=== PATIENT | male | born 1945 | race Caucasian/White ===

== ENCOUNTER 2017-11-04 12:55 | Outpatient (CLI) | payer MEDICARE, OTHER ==
--- NOTE | 2017-11-04 15:28 | PET ---
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 Stat us post esophageal gastrectomy. Last chemotherapy was in September 2017. Exam requested for restaging. TECHNIQUE: PET scanning with CT attenuation correction was performed from the base of the brain through the prox imal thighs following the intravenous administration of 12.8 mCi F18-FDG in the right hand. Imaging w as performed after an uptake interval of 40 minutes. COMPARISON: PET CT dated 12/29/16. FINDINGS: There is a focal area of increased FDG localization in the region of the junction with a SUV of 7. 3. No fredy hypermetabolism is seen in the neck, chest, abdomen, or pelvis. The previously noted hype rmetabolic lymph nodes in the gastrohepatic ligament are no longer seen. No hypermetabolic pulmonary nodules, liver, adrenal, or skeletal lesions are identified. There is physiologic activity in the GI and tracts, and visualized portions of the brain. Increased uptake in the opacified right maxillary sinus is again seen with a SUV of 11.2 (previously 23.2). This is likely due to paranasal sinus disease. The CT scan used for attenuation correction demonstrates no evidence of pleural effusions or ascites. Postop changes of metallic hardware in the lower lumbar spine and sacrum are again seen. IMPRESSION: Hypermetabolic focus in the region of the GE junction is suspicious for recurrence of malignancy. No evidence of distant metastatic disease. POS: [facility]
== END 2017-11-04 12:56 | disposition home or self-care (01) ==
LOC: PET 12:55
PROVIDERS: ATTEND Internal Medicine Medical Oncology
DX: C15.9 Malignant neoplasm of esophagus, unspecified (principal)
CPT/HCPCS: 78815; A9552

== ENCOUNTER 2018-02-12 08:50 | Outpatient (CLI) | payer MEDICARE, OTHER ==
--- NOTE | 2018-02-12 13:21 | PET ---
PET SCAN WITH CT ATTENUATION CORRECTION: HISTORY: Esophageal cancer. COMPARISON: 11/04/17. TECHNIQUE: PET scan with CT attenuation correction was performed from the base of the brain to the proximal thig hs following the intravenous administration of 11.1 mCi of [id number]. FINDINGS: HEAD AND NECK: Persistent FDG avidity involving the right maxillary sinus, extending into the right nasal cavity. C urrently, the maximum SUV is 8.9 (previously 9.8). Findings may represent some resolution of inflamm atory change. However, uptake is also reported and noted in December of 2016. Longstanding FDG avidity may be on the basis of chronic sinus disease. However, direct visualization to exclude a neoplasm i s strongly recommended. Additional FDG avidity is noted in the oral cavity with a maximum SUV of 4.2 . CHEST: There is increased FDG avidity involving the mid esophagus with the maximum SUV between 2.8 and 2.9. Additional FDG localization is not appreciated. Interval removal of a stent in the thoracic esophag us. There are linear opacities in the right lower lobe which do not have FDG avidity. These opacities we re not present on the examination from October 2017 and may represent areas of scar or atelectasis. ABDOMEN AND PELVIS: There is increased FDG avidity in the anterior epigastric region which may be changes due to a previo usly removed PEG tube. There is deformity in the overlying dermis. FDG avidity in this region is 3. 4. No additional areas of increased FED avidity are appreciated. Previously noted FDG avidity invol ving the gastroesophageal ligament is not appreciated currently. OSSEOUS SRUCTURES: No abnormal FDG localization. IMPRESSION: 1. Persistent fluorodeoxyglucose avidity in the right maxillary region and right nasal cavity. Dire ct visualization is recommended. 2. Increased fluorodeoxyglucose avidity in the midthoracic esophagus. Interval removal of stent. F luorodeoxyglucose avidity does raise the possibility of recurrent esophageal cancer. 3. No evidence of fluorodeoxyglucose avidity in the gastrohepatic ligament. There is increased fluo rodeoxyglucose avidity in the epigastric region with deformity of the overlying dermis. Findings may be due to previous PEG tube. Correlate clinically for possible infection. POS: [facility]
== END 2018-02-12 08:51 | disposition home or self-care (01) ==
LOC: PET 08:50
PROVIDERS: ATTEND Internal Medicine Medical Oncology
DX: C15.9 Malignant neoplasm of esophagus, unspecified (principal)
CPT/HCPCS: 78815; A9552

== ENCOUNTER → 2018-03-10 | Day surgery (SDC) | payer MEDICARE, OTHER ==
[~2018-03-10] MED LIST: PROPOFOL 200 MG/20 ML VIAL ONE
--- NOTE | 2018-03-10 15:29 | OP ---
DATE OF PROCEDURE: 03/10/2018 PROCEDURE: Esophagogastroduodenoscopy with biopsy and balloon dilation of the esophagus and a biopsy of the stomach. OPERATIVE NOTE: Informed consent was obtained from the patient. He was sedated with total intraveno us anesthesia. The bite block was placed and the endoscope was advanced easily to the second portion of the duodenum and retroflexion was performed in the stomach. The esophagus had a tight stricture at 30 cm through which the diagnostic endoscope could not be passed. This was dilated to 15 mm start ing at 12 mm to 13.5 and then 15 mm with a balloon. Appropriate tear was achieved at the dilation si te. There was ulceration and erosive esophagitis from 25-30 cm. The anastomosis was at 30 cm. The stricture was between 30 and 33 cm, which was dilated. There was an area of gastric mucosa within a focal erosion on the base of a fold inside the surgical hiatal hernia. This was biopsied. Biopsies were also obtained at 25, 27, 30, and 32 cm. No focal mass was seen to indicate obvious recurrence o f esophageal cancer; however, the area was inflamed and ulcerated. The gastric mucosa was, otherwise , unremarkable including retroflexed views. The pylorus and first and second portions of the duodenu m were normal. IMPRESSION: 1. Erosive esophagitis from 25-30 cm, biopsied at 25 and 27 cm. 2. Anastomosis at 30 cm with stricture from 30-33 cm. This was dilated to 15 mm with a balloon dila tor. The scope could pass easily through the stricture after dilation, but could not prior to the di lation. Biopsies were obtained at 30 and 32 cm. 3. Gastric fold with a focal erosion at 39 cm just inside the surgical hiatal hernia. This is biops ied. 4. Otherwise, normal gastric and duodenal mucosa. RECOMMENDATIONS: 1. Await histopathology. 2. Proton pump inhibitor twice daily. 3. Follow up in GI clinic. 4. Repeat esophageal dilation as needed.
== END ==
LOC: SDC 12:47
PROVIDERS: ATTEND Internal Medicine Gastroenterology
PROC: 0DB58ZX Excision of Esophagus, Via Natural or Artificial Opening Endoscopic, Diagnostic (ICD-10-PCS; principal; 2018-03-10)
PROC: 0DB68ZX Excision of Stomach, Via Natural or Artificial Opening Endoscopic, Diagnostic (ICD-10-PCS; 2018-03-10)
PROC: 0D758ZZ Dilation of Esophagus, Via Natural or Artificial Opening Endoscopic (ICD-10-PCS; 2018-03-10)
DX: K22.2 Esophageal obstruction (principal); K22.10 Ulcer of esophagus without bleeding; K44.9 Diaphragmatic hernia without obstruction or gangrene; F17.210 Nicotine dependence, cigarettes, uncomplicated; Z88.0 Allergy status to penicillin; Z88.5 Allergy status to narcotic agent; Z79.82 Long term (current) use of aspirin; Z79.899 Other long term (current) drug therapy
CPT/HCPCS: 88305; 88312; 88313; J2704

== ENCOUNTER 2018-03-24 15:54 | Observation (INO) | payer MEDICARE, OTHER ==
[~2018-03-24 15:54] MED LIST changes: +Lidocaine 1% PF 5 ML VIAL ONE; +Succinylcholine Chloride 20 MG/ML 10 ml SYRINGE FS ONE; +ePHEDrine/0.9% NaCl/PF SYRINGE 50 mg/10 ml ONE
[2018-03-24] MEDS ORDERED: Morphine 4 MG/ML VIAL ONE (16:55)
[2018-03-24 17:01] LABS: #Eosinphils 0.4 thou/uL (0.0-0.7); #Lymphocytes 0.8 thou/uL (1.20-3.40); #Monocytes 0.5 thou/uL (0.11-0.59); #Neutrophils 2.1 thou/uL (1.40-6.50); %Basophils 0.6 % (0.0-1.0); %Eosinophils 10.4 % (0.0-10.0); %Lymphocytes 20.2 % (21.0-51.0); %Monocytes 12.7 % (0.0-10.0); %Neutrophils 56.1 % (42.0-75.0); Hemoglobin 10.5 g/dL (14.0-18.0); Mean Corpuscular HGB CONC 33.8 g/dL (32.0-36.0); Mean Corpuscular Hemoglobin 33.5 pg (27.0-31.0); Mean Corpuscular Volume 99.1 fL (78.0-98.0); Platelet Count 100 thou/uL (130-400); RBC Distribution Width 17.4 % (11.5-14.5); Red Blood Cell (RBC) Count 3.13 mill/uL (4.70-6.10); White Blood Cell (WBC) Count 3.8 thou/uL (4.8-10.8)
[2018-03-24 17:07] VITALS: BMI 17.2
[2018-03-24 17:09] LABS: PTT 33.7 SEC (22.9-36.1); Prothrombin Time 13.4 SEC (12.0-14.7)
[2018-03-24] MEDS ORDERED: Midazolam HCl 2 mg/2 ml Vial ONE (17:18)
[2018-03-24] MEDS ORDERED: Succinylcholine Chloride 20 MG/ML 10 ml SYRINGE FS ONE (17:18)
[2018-03-24 17:19] LABS: ALT (SGPT) 9 U/L (8-55); AST (SGOT) 19 U/L (5-34); Albumin 3.5 g/dL (3.4-4.8); Alkaline Phosphatase 76 U/L (40-150); Anion Gap 13 mmol/L (10-20); BUN (Urea Nitrogen) 10 mg/dL (8.4-25.7); Bilirubin, Total 0.6 mg/dL (0.2-1.2); Calc. Creatinine Clearance 78 mL/min (70-130); Carbon Dioxide 23 mmol/L (23-31); Chloride 100 mmol/L (98-107); Estimated GFR-MDRD Greater than 90; Globulin 3.5 g/dL (2.4-3.5); Glucose 120 mg/dL (83-110); Potassium 3.8 mmol/L (3.5-5.1); Sodium 132 mmol/L (136-145)
[2018-03-24] MEDS ORDERED: Ondansetron HCl/PF 4 MG/2 ML Vial IVP PRN ×2 (17:52→22:36)
[2018-03-24] MEDS ORDERED: Promethazine HCl 25 MG/ML VIAL IM PRN (17:52)
[2018-03-24] MEDS ORDERED: Morphine Sulfate 2 MG/ML SYRINGE SLOW IVP PRN (17:52)
[2018-03-24] MEDS ORDERED: Promethazine HCl 25 MG/ML VIAL SLOW IVP PRN (17:52)
[2018-03-24] MEDS ORDERED: Ondansetron HCl/PF 4 MG/2 ML Vial ONE (18:10)
[2018-03-24] MEDS ORDERED: Promethazine HCl 25 MG/ML VIAL ONE (19:02)
[2018-03-24] MEDS: Dextrose 5 %-0.45 % NaCl 1,000 ML IV SCH (20:41)
[2018-03-24] MEDS: Pantoprazole 40 MG VIAL IVP SCH (20:41)
[2018-03-24 21:18] LABS: PTT 25.5 SEC (22.9-36.1); Prothrombin Time 13.3 SEC (12.0-14.7)
[2018-03-24 21:23] LABS: #Eosinphils 0.1 thou/uL (0.0-0.7); #Lymphocytes 0.6 thou/uL (1.20-3.40); #Monocytes 0.3 thou/uL (0.11-0.59); #Neutrophils 2.8 thou/uL (1.40-6.50); %Basophils 0.6 % (0.0-1.0); %Eosinophils 2.6 % (0.0-10.0); %Lymphocytes 15.2 % (21.0-51.0); %Monocytes 8.3 % (0.0-10.0); %Neutrophils 73.3 % (42.0-75.0); Hemoglobin 10.7 g/dL (14.0-18.0); Mean Corpuscular HGB CONC 34.2 g/dL (32.0-36.0); Mean Corpuscular Hemoglobin 34.1 pg (27.0-31.0); Mean Corpuscular Volume 99.6 fL (78.0-98.0); Mean Platelet Volume 8.4 fL (7.4-10.4); Platelet Count 102 thou/uL (130-400); RBC Distribution Width 17.3 % (11.5-14.5); Red Blood Cell (RBC) Count 3.14 mill/uL (4.70-6.10); White Blood Cell (WBC) Count 3.8 thou/uL (4.8-10.8)
[2018-03-24 21:30] LABS: ALT (SGPT) 9 U/L (8-55); AST (SGOT) 19 U/L (5-34); Albumin 3.5 g/dL (3.4-4.8); Alkaline Phosphatase 79 U/L (40-150); Anion Gap 14 mmol/L (10-20); BUN (Urea Nitrogen) 9 mg/dL (8.4-25.7); Bilirubin, Total 0.6 mg/dL (0.2-1.2); Calc. Creatinine Clearance 83 mL/min (70-130); Calcium 8.8 mg/dL (7.8-10.44); Carbon Dioxide 23 mmol/L (23-31); Chloride 99 mmol/L (98-107); Estimated GFR-MDRD Greater than 90; Globulin 3.5 g/dL (2.4-3.5); Glucose 155 mg/dL (83-110); Potassium 3.5 mmol/L (3.5-5.1); Sodium 132 mmol/L (136-145)
[2018-03-24] MEDS ORDERED: Ondansetron ODT 8 MG TAB SL PRN (22:02)
[2018-03-24] MEDS ORDERED: Prochlorperazine Maleate 5 MG TAB PO PRN (22:07)
[2018-03-24] MEDS ORDERED: Gabapentin 100 MG CAP PO SCH (22:30)
[2018-03-24] MEDS ORDERED: Lorazepam 1 MG TAB PO SCH (22:30)
[2018-03-24] MEDS ORDERED: Terazosin HCl 1 MG CAP PO SCH (22:30)
[2018-03-24] MEDS ORDERED: Ondansetron ODT 4 MG TAB PO PRN (22:37)
[2018-03-24] MEDS ORDERED: Acetaminophen 650 MG Suppository PR PRN (22:48)
[2018-03-24] MEDS ORDERED: hydrALAZINE 20 MG/ML VIAL SLOW IVP PRN (22:49)
[2018-03-24] MEDS ORDERED: Nicotine 21 MG PATCH TD SCH (23:00)
--- NOTE | 2018-03-24 23:35 | CON ---
DATE OF CONSULTATION: 03/24/2018 CHIEF COMPLAINT: Cannot swallow. HISTORY OF PRESENT ILLNESS: Mr. Molina is a 72-year-old man who presented to GI clinic today with inability to swallow his saliva or any liquids. He has been vomiting his saliva back up. He ate bar becue chicken 2 nights ago. The next day he tried to eat some oatmeal and this did not stay down and he kept nothing else down since then. He has had weakness and he feels dehydrated and has trouble w alking. He has had a decrease in his urine output. He had some abdominal discomfort along the midli ne and abdominal incision where he had a previous hernia repair. He has mesh that was protruding thr ough that incision. He has had no bowel movement for the last day and a half; however, prior to that he was having up to 4 runny stools per day with loss of continence. No blood in the stool. I had p erformed EGD for him on 03/10/2018. He has a history of esophageal cancer status post esophagectomy. He had severe erosive esophagitis and lower esophageal stricture that was too tight to pass the sco pe through. He has had radiation to his esophagus previously. I biopsied his esophagus on multiple levels which were negative for recurrent malignancy. I dilated his esophagus to 15 mm with a balloon . After the dilation, he reports that he ate very well for the next 2 weeks up until this episode ye morning and what I suspect is actually 2 nights ago when he had the chicken. PAST MEDICAL HISTORY: Esophageal cancer, coronary artery disease, COPD, hyperlipidemia. PAST SURGICAL HISTORY: Esophagectomy, colonoscopy, hiatal hernia surgery, knee surgery, back surgery , heart surgery, coronary stent placement. FAMILY HISTORY: Positive for lung cancer in a sister. SOCIAL HISTORY: Smokes a pack a day. No alcohol, no drugs. He is and has 2 children and is retired. ALLERGIES: PENICILLIN AND CODEINE. CURRENT MEDICATIONS: Aspirin 81 mg daily, pantoprazole 40 mg twice daily, hydrocodone with acetamino phen 5/325 as needed, lorazepam 1 mg as needed, terazosin 1 mg daily, gabapentin 100 mg 3 times a day , prochlorperazine 10 mg as needed, ondansetron 8 mg every 6 hours as needed. REVIEW OF SYSTEMS: Negative x10 systems reviewed except as stated in the history of present illness. PHYSICAL EXAMINATION: GENERAL: He is in no acute distress. He is alert and oriented x3. VITAL SIGNS: His temperature is 96.9, pulse 88, blood pressure 120/80. LUNGS: Clear to auscultation bilaterally. HEART: Regular rate and rhythm. NECK: There is no cervical or supraclavicular lymphadenopathy. EYES: Eyes have no scleral icterus. OROPHARYNX: Clear, without lesions. He is spitting his saliva into a bag. ABDOMEN: Soft, nontender, nondistended. He has a breakdown in the midline incision in the epigastri c region with a small amount of mesh protruding. His abdomen is nontender. EXTREMITIES: No lower extremity edema. IMPRESSION: 1. Esophageal food impaction in the esophageal stricture most likely with chicken from 2 nights ago. 2. Esophageal stricture status post radiation; and esophagectomy for esophageal cancer. Recent dila tion to 15 mm did result in immediate improvement in his swallowing until he got this food stuck 2 ni ghts ago. Follow up biopsies were negative for malignancy. 3. Dehydration and weakness with inability to take in any fluids for the last couple of days. PLAN: He is being transferred to the hospital for IV fluids and EGD to be performed today. Ultimate ly, if he is admitted, then we can request General Surgery to evaluate the incision with the mesh pro truding.
--- NOTE | 2018-03-24 23:59 | HP ---
PRIMARY CARE PHYSICIAN: Dr. Jagdeep Stephenson. CHIEF COMPLAINT: Dysphagia. HISTORY OF PRESENT ILLNESS: Mr. Molina is a pleasant 72-year-old gentleman who was seen at [facility] on 03/24/2018. Over the last couple of days, he had difficulty swallowing. He reports that when he eats food, it fe els stuck in the middle of his chest and this is followed by regurgitation of the food. He saw his astroenterologist earlier today. He was sent for an EGD and he is subsequently being admitted. Titus ng the EGD, he was found to have esophageal food bolus impaction. He had an esophageal ulceration an d stricture dilated to 15 mm with balloon. He also had scalloped duodenal folds and underwent biopsy to rule out celiac disease. He has been started on b.i.d. PPI. Homebirth Midwife recommends diet and not advanced diet beyond. Currently, patient denies any chest pain, shortness of breath, fevers, or chills. He reports feeling weak overall, but this is not new. REVIEW OF SYSTEMS: All other systems reviewed and found to be negative. PAST MEDICAL HISTORY: Significant for back problems, bursitis/shoulder pain, COPD, CAD, status post PCI with LAD stent in 2006, dyslipidemia, BPH, hypertension, and abdominal aortic aneurysm. Esophage al cancer, status post surgery and chemotherapy, patient is currently still undergoing chemotherapy t [facility]. PAST SURGICAL HISTORY: Significant for repair of infrarenal abdominal aortic aneurysm in 2014, left knee surgery, back surgery, and esophagectomy. FAMILY HISTORY: Cardiac disease in both parents. SOCIAL HISTORY: He smokes 1 pack of cigarettes a day. He denies alcohol use or recreational drug us e. CODE STATUS: I discussed his code status. He is FULL CODE. His is the surrogate decision make r. ALLERGIES: CODEINE and PENICILLIN. CURRENT MEDICATIONS: Aspirin 325 mg daily, gabapentin 100 mg 3 times a day, Ativan 1 mg 3 times a da y, Zofran 8 mg sublingually as needed, Protonix 40 mg daily, prochlorperazine 10 mg every 4 hours as needed, and terazosin 1 mg daily. PHYSICAL EXAMINATION: GENERAL: Mr. Molina is awake and alert, not in acute distress. VITAL SIGNS: Temperature is low at 94.5, pulse is 68. He is breathing at rate of 18 and saturating 97% on room air. Blood pressure is 188/93. EYES: No scleral icterus, no conjunctival pallor. ENT: Moist mucosal membranes, no oropharyngeal erythema or exudates. NECK: Supple, nontender. Trachea is midline. RESPIRATORY: Accessory muscles of breathing are not active. Chest wall movements are symmetric bila terally. He has a MediPort. Lungs are clear to auscultation, without wheeze, rhonchi, or crepitatio ns. CARDIOVASCULAR: S1 and S2 are heard, regular. Peripheral pulses palpable. No carotid bruit, no per icardial rub. ABDOMEN: Soft, nontender, bowel sounds are heard, no hepatomegaly, no splenomegaly. NEUROLOGIC: Cranial nerves II-XII intact. Deep tendon reflexes 2+. MUSCULOSKELETAL: Power is 5/5 in all 4 extremities. SKIN: No rashes or subcutaneous nodules. LYMPHATIC: No cervical lymphadenopathy. PSYCHIATRIC: Normal mood, normal affect, patient is oriented to person, place, and time. DATABASE: Mr. Molina's labs and investigations were reviewed. He has white count of 3800, hemoglo bin 10.7, platelet count 102,000. INR 1.0. Sodium decreased at 132, otherwise normal electrolytes, normal creatinine, and an unremarkable liver profile. ASSESSMENT AND PLAN: Mr. Molina is a pleasant 72-year-old gentleman who was seen at [facility] on 03/24/2018. His problem list includes: 1. Dysphagia secondary to esophageal food impaction. He already had EGD with removal of the food purvi karmen. He has been started on pureed diet. We will admit to the hospital in observation status for fu rther management. 2. Hyponatremia: Mild, likely symptomatic. Follow electrolytes. 3. Pancytopenia: Most likely secondary to chemotherapy. 4. Esophageal cancer: Patient to follow up with his oncologist as outpatient for further management . 5. Benign prostatic hypertrophy: Continue terazosin. 6. Coronary artery disease: Appears to be stable. Patient denies any chest pain. Many thanks for allowing me to participate in the patient's care. Please feel free to contact me wit h any questions or concerns. LEVEL OF RISK: Moderate. LEVEL OF COMPLEXITY: Moderate.
--- NOTE | 2018-03-25 01:08 | OP ---
DATE OF PROCEDURE: 03/24/2018 PROCEDURES: Esophagogastroduodenoscopy with esophageal-balloon dilation of an esophageal stricture a nd biopsies of the duodenum. PREOPERATIVE DIAGNOSES: Esophageal foreign body and food impaction and history of the esophageal str icture secondary to prior radiation and anastomotic stricture from esophagectomy due to history of es ophageal cancer. OPERATIVE NOTE: Informed consent was obtained from the patient. He was sedated with general anesthe serena. The bite block was placed and the endoscope was advanced easily to the distal esophagus, where a food meat bolus was encountered and was advanced to the stomach. The esophagus had a stricture in the mid to distal esophagus with ulcerations on either side and this was level at which the impaction occurred. This stricture was just dilated with a balloon to 15 mm, two weeks ago. Biopsies were ne gative for malignancy. The stomach had a hiatal hernia to be expected with his prior surgery. There was evidence of a previous pyloroplasty. The stomach was otherwise unremarkable. The duodenum had scalloped folds and the second portion of the duodenum and these were biopsied to rule out celiac dis ease. The esophageal stricture again was dilated to 15 mm with a balloon dilator. This was much mor e patent at the time of this procedure then it was at the time of the prior procedure prior to dilati on. IMPRESSION: 1. Esophageal food bolus impaction advanced into the stomach. 2. Esophageal ulcer and stricture dilated to 15 mm with a balloon. 3. Evidence of prior pyloroplasty. 4. Hiatal hernia. 5. Scalloped duodenal folds, biopsied to rule out celiac disease. RECOMMENDATIONS: 1. Await histopathology. 2. Proton-pump inhibitor twice daily. 3. Pureed diet, do not advance beyond this. 4. Admission due to severe dehydration. The patient has received normal saline bolus and additional maintenance fluid. He has had no liquid or solid intake for close to 48 hours prior to now.
[2018-03-25] MEDS: Dextrose 5 %-0.45 % NaCl 1,000 ML IV SCH (04:12)
[2018-03-25 05:14] LABS: Anion Gap 8 mmol/L (10-20); BUN (Urea Nitrogen) 10 mg/dL (8.4-25.7); Calc. Creatinine Clearance 84 mL/min (70-130); Calcium 8.8 mg/dL (7.8-10.44); Carbon Dioxide 26 mmol/L (23-31); Chloride 99 mmol/L (98-107); Estimated GFR-MDRD Greater than 90; Glucose 190 mg/dL (83-110); Potassium 3.4 mmol/L (3.5-5.1); Sodium 130 mmol/L (136-145)
[2018-03-25 06:20] LABS: Hemoglobin 9.8 g/dL (14.0-18.0); Mean Corpuscular Hemoglobin 33.7 pg (27.0-31.0); Mean Corpuscular Volume 98.9 fL (78.0-98.0); Mean Platelet Volume 8.1 fL (7.4-10.4); Platelet Count 99 thou/uL (130-400); RBC Distribution Width 17.2 % (11.5-14.5); Red Blood Cell (RBC) Count 2.92 mill/uL (4.70-6.10); White Blood Cell (WBC) Count 4.3 thou/uL (4.8-10.8)
[2018-03-25 06:21] LABS: Band 9 % (5-11); Eosinophils 2 % (0-10); Lymphocytes 18 % (21-51); MDiff Complete? YES; Monocytes 8 % (0-10); Neutrophil 63 % (42-75); PLT Morphology Comment Appears Decreased
--- NOTE | 2018-03-25 07:49 | PDOC.PN ---
- Subjective Encounter Start Date: 03/25/18 (f/u hyponatremia) Encounter Start Time: 07:47 Subjective: Pt reports feeling better s/p esophageal impaction removal -: pain back at his baseline. Reports some lightheaded. -: denies any new sx - Objective Resuscitation Status: Resuscitation Status FULL:Full Resuscitation Vital Signs & Weight: Vital Signs (12 hours) Temp Pulse Resp BP Pulse Ox 03/25/18 04:00 97.7 F 73 18 136/76 97 03/25/18 00:00 97.8 F 80 16 164/68 H 97 Weight Weight 124 lb I&O: 03/24/18 03/25/18 03/26/18 06:59 06:59 06:59 Intake Total 1025 Output Total 1350 Balance -325 Result Diagrams: 03/25/18 04:40 03/25/18 04:40 Phys Exam - Physical Examination Constitutional: NAD Cardiovascular: RRR, no significant murmur Gastrointestinal: soft, no distention, positive bowel sounds ttp along the mid-right side (pt reports chronic and due to prior hernia) Musculoskeletal: no edema Neurological: non-focal, moves all 4 limbs Psychiatric: normal affect Skin: no rash Dx/Plan (1) Esophageal obstruction due to food impaction Code(s): K22.2 - ESOPHAGEAL OBSTRUCTION; T18.128A - FOOD IN ESOPHAGUS CAUSING OTHER INJURY, INITIAL ENCOUNTER Status: Resolved (2) Esophageal cancer Status: Chronic Qualifiers: Malignant neoplasm of esophagus location: unspecified location Qualified Code(s): C15.9 - Malignant neoplasm of esophagus, unspecified (3) Hyponatremia Code(s): E87.1 - HYPO-OSMOLALITY AND HYPONATREMIA Status: Acute (4) Pancytopenia Code(s): D61.818 - OTHER PANCYTOPENIA Status: Acute (5) BPH (benign prostatic hyperplasia) Code(s): N40.0 - BENIGN PROSTATIC HYPERPLASIA WITHOUT LOWER URINRY TRACT SYMP Status: Chronic Qualifiers: Lower urinary tract symptom detail: unspecified (6) CAD (coronary artery disease) Code(s): I25.10 - ATHSCL HEART DISEASE OF [place] CORONARY ARTERY W/O ANG PCTRS Status: Acute - Plan * s/p impaction removal balloon dilation with some esophageal ulceration. * Change IVF to D5LR due to slight worsening of mild hyponatremia * Pureed diet - monitor intake * Lightheaded - likely secondary to severe dehydration - urine remains fairly concentrated. Falls precautions * * further care per GI with regards to changing IV protonix to PO, and safety with discharge to home * * dvt prophy - mild thrombocytopenia - scd's * gi prophy - on IV protonix * * code status full * * reviewed plan of care with patient/, no questions or further needs at end of eval * pt remains at high risk in current condition
[2018-03-25] MEDS ORDERED: Terazosin HCl 1 MG CAP PO SCH (09:00)
[2018-03-25] MEDS: Dextrose 5%-Lactated Ringers 1,000 ML IV SCH ×2 (09:29→16:08)
[2018-03-25] MEDS: Gabapentin 100 MG CAP PO SCH ×2 (09:30→15:40)
[2018-03-25] MEDS: Lorazepam 1 MG TAB PO SCH ×2 (09:30→15:41)
[2018-03-25] MEDS: Pantoprazole 40 MG VIAL IVP SCH (09:30)
[2018-03-25 12:19] VITALS: TEMP 97.7
[2018-03-25 13:31] VITALS: BP 122/67
--- NOTE | 2018-03-25 18:45 | PRG ---
DATE OF SERVICE: 03/25/2018 SUBJECTIVE: Mr. Molina is swallowing the pureed diet well. No other acute complaints today. OBJECTIVE: VITAL SIGNS: Temperature 97.7, pulse 73, blood pressure 100/57. GENERAL: He is in no acute distress, alert and oriented x3. LUNGS: Clear to auscultation bilaterally. HEART: Regular rate and rhythm. ABDOMEN: Soft, nontender, nondistended. Bowel sounds are present. His abdomen has an opening in th e midline scar in the epigastric region with mesh visible. EXTREMITIES: No lower extremity edema. IMPRESSION: 1. Esophageal food bolus impaction relieved with endoscopy. 2. Esophageal stricture, status post esophagectomy and radiation. Follow up biopsies a couple weeks ago were negative for recurrence of cancer. The esophagus was balloon dilated to 15 mm. There is s till ulceration and inflammation around the esophageal stricture. He was not taking a proton pump in hibitor when he had come to clinic originally prior to the endoscopy a couple weeks ago. RECOMMENDATIONS: 1. Pantoprazole 40 mg twice daily. 2. Maintain a pureed diet and hopefully, his esophagus will have more healing after he has been on p roton pump inhibitor for a longer period. We will also plan a followup endoscopy and dilation. 3. Repeat EGD in 3 weeks to 4 weeks for repeat balloon dilation of the esophageal stricture. 4. I spoke with Dr. Espinal, he will call Dr. Espinal's office to schedule followup appointment for next week or so to evaluate the skin breakdown at the incision site with a visible mesh. 5. Continue pureed diet and do not advance consistency beyond that.
[2018-03-25] MEDS ORDERED: Aspirin 325 mg Enteric Coated Tablet PO SCH (21:00)
--- NOTE | 2018-03-26 01:43 | DIS ---
DATE OF ADMISSION: 03/24/2018 DATE OF DISCHARGE: 03/25/2018 PROCEDURES PERFORMED: Esophagogastroduodenoscopy with removal of food impaction , and dilation of esophageal stricture, and identification of some esophageal ulceration. CONSULTANTS: Dr. Isidro of Gastroenterology. MEDICATIONS: Reconciled at discharge and unchanged compared to admission: 1. Aspirin 325 mg daily. 2. Gabapentin 100 mg t.i.d. 3. Ativan 1 mg t.i.d. 4. Zofran 8 mg as needed. 5. Pantoprazole. 6. Terazosin 1 mg daily. 7. Prochlorperazine 10 mg every 4 hours as needed. Medication changed: Pantoprazole is increased to 1 tablet twice a day about 30 minutes prior to meals. FOLLOWUP: 1. With the primary care provider within a week to review this hospitalization and address any other needs. 2. Follow up with Dr. sIidro in the GI clinic in 3-4 weeks for reevaluation. 3. Follow up with Dr. Espinal of General Surgery for evaluation of hernia and prior repair. FINAL DIAGNOSES: 1. Food impaction, status post removal. 2. Esophageal ulcer and stricture, status post dilation. 3. Dehydration, resolved. 4. Coronary artery disease. 5. Esophageal cancer, status post surgery and undergoing chemotherapy. 6. Benign prostatic hypertrophy. 7. Hypertension. 8. Dyslipidemia. 9. Abdominal aortic aneurysm. 10. Prior hernia repair with area of concern for ulceration. 11. Pancytopenia. 12. Hyponatremia, mild. DIET: Pureed, not to be advanced at all. CODE STATUS: Full. HISTORY OF PRESENT ILLNESS: Mr. Molina is a 72-year-old male who has had difficulty swallowing, and a stuck sensation in the middle of his chest for the past couple of days. He was seen by his transportation logistics internship and sent to the Emergency Room for immediate evaluation and treatment. Following the procedure , the patient was placed on observation status for IV hydration due to severe dehydration. HOSPITAL COURSE: The patient underwent EGD with Dr. Isidro with removal of the food impaction, and dilation of the esophageal stricture. He was started on twice daily IV PPI, which has been changed to oral and he will continue this. For the severe dehydration he was hydrated with IV fluids and tolerated this well. Patient is requesting discharge to home. He does have some lightheadedness and agrees to go slow with changing positions and walking. He is tolerating a pureed diet which is anticipated to be lifelong, and drinking fluids without difficulty. He will follow up with Dr. Isidro in the clinic for further evaluation and consideration of a repeat dilation of the stricture. PHYSICAL EXAMINATION: VITAL SIGNS: On day of discharge, his vital signs, 122/67 lying down, standing 96/55 and sitting 100/57. Temperature 97.7, pulse 73, respirations 20, saturations 95% on room air. GENERAL: Awake, alert, responsive, in no apparent distress, able to speak in full sentences. LUNGS: Clear to auscultation bilateral. No audible wheezing, rhonchi or rales. HEART: Normal S1, S2. Regular rate and rhythm, no audible murmurs. ABDOMEN: Soft, tenderness to palpation midline, but the patient reports problems with previous hernia repair. CALDERÓN FINDINGS AND TEST RESULTS: CBC today 4.3, 9.8, 28.9, 99. His coagulation: PT 13.3, INR 1, PTT 25.5. Chemistry 130, 3.4, 99, 26, 10, 0.64, 190 with a calcium of 8.8. LFTs are normal. Reviewed with patient and his this hospitalization, the importance of followup, the importance of a pureed diet and taking the PPI before meals, and to seek care precautions. They demonstrate understanding. Total time coordinating discharge is 30 minutes. Of note, after discharge, recommendations from the real estate sales supervisor were found and patient will be contacted by the Observation nursing staff with this information - ensure enlive three times daily, ensure clear three times daily, and a daily multivitamin. TYSON
== END 2018-03-25 16:31 | disposition home or self-care (01) ==
LOC: 2SW 15:54
PROVIDERS: ADMIT Internal Medicine; ATTEND Internal Medicine
PROC: 0DB98ZX Excision of Duodenum, Via Natural or Artificial Opening Endoscopic, Diagnostic (ICD-10-PCS; principal; 2018-03-24)
PROC: 0D758ZZ Dilation of Esophagus, Via Natural or Artificial Opening Endoscopic (ICD-10-PCS; 2018-03-24)
PROC: 0DC58ZZ Extirpation of Matter from Esophagus, Via Natural or Artificial Opening Endoscopic (ICD-10-PCS; 2018-03-24)
DX: T18.128A Food in esophagus causing other injury, initial encounter (principal); K22.2 Esophageal obstruction; K22.10 Ulcer of esophagus without bleeding; K44.9 Diaphragmatic hernia without obstruction or gangrene; K29.80 Duodenitis without bleeding; J44.9 Chronic obstructive pulmonary disease, unspecified; I25.10 Atherosclerotic heart disease of native coronary artery without angina pectoris; E78.5 Hyperlipidemia, unspecified; I10 Essential (primary) hypertension; F17.210 Nicotine dependence, cigarettes, uncomplicated; E87.1 Hypo-osmolality and hyponatremia; D61.818 Other pancytopenia; C15.9 Malignant neoplasm of esophagus, unspecified; N40.0 Benign prostatic hyperplasia without lower urinary tract symptoms; Z79.82 Long term (current) use of aspirin; Z79.899 Other long term (current) drug therapy; Z88.0 Allergy status to penicillin; Z88.5 Allergy status to narcotic agent
CPT/HCPCS: 43239; 43247; 43249; 80048; 80053 ×2; 85025 ×3; 85610 ×2; 85730 ×2; 88305; 96361 ×2; 96374; 96375; 96376 ×2; G0378; G0379; C9113; J1642; J2001; J2250; J2270; J2405; J2550; J2704; Q0162

== ENCOUNTER 2018-04-18 12:44 | Day surgery (SDC) | payer MEDICARE, OTHER ==
[2018-04-18] MEDS ORDERED: Ondansetron ODT 8 MG TAB ONE (13:01)
[2018-04-18] MEDS ORDERED: Lidocaine 4% Cream 5 GM TUBE w/ Tegaderm ONE (13:10)
[2018-04-18 13:57] LABS: #Lymphocytes 0.4 thou/uL (1.20-3.40); #Monocytes 0.2 thou/uL (0.11-0.59); #Neutrophils 1.3 thou/uL (1.40-6.50); %Basophils 0.4 % (0.0-1.0); %Eosinophils 1.7 % (0.0-10.0); %Lymphocytes 21.5 % (21.0-51.0); %Monocytes 8.1 % (0.0-10.0); %Neutrophils 68.4 % (42.0-75.0); Hemoglobin 10.5 g/dL (14.0-18.0); Mean Corpuscular HGB CONC 33.8 g/dL (32.0-36.0); Mean Corpuscular Hemoglobin 34.9 pg (27.0-31.0); Mean Platelet Volume 8.1 fL (7.4-10.4); Platelet Count 100 thou/uL (130-400); RBC Distribution Width 16.2 % (11.5-14.5); White Blood Cell (WBC) Count 1.9 thou/uL (4.8-10.8)
[2018-04-18 14:18] LABS: Anion Gap 12 mmol/L (10-20); BUN (Urea Nitrogen) 9 mg/dL (8.4-25.7); Calc. Creatinine Clearance 0 mL/min (70-130); Calcium 8.7 mg/dL (7.8-10.44); Carbon Dioxide 23 mmol/L (23-31); Chloride 101 mmol/L (98-107); Estimated GFR-MDRD Greater than 90; Glucose 156 mg/dL (83-110); Potassium 3.7 mmol/L (3.5-5.1); Sodium 132 mmol/L (136-145)
--- NOTE | 2018-04-18 14:48 | RAD ---
AP VIEW OF THE CHEST: INDICATION: Difficulty swallowing. History of esophageal cancer. FINDINGS: The exam is compared to a prior dated 02/07/16. There is a new left chest wall port in place. Left l jd changes are stable. Mild cardiomegaly is stable. There are surgical clips within the posterior mediastinum and upper abdomen. No acute osseous abnormality is evident. IMPRESSION: No definite acute cardiopulmonary abnormality. Postsurgical changes as above. POS: [facility]
[2018-04-18] MEDS ORDERED: Lidocaine 1% PF 5 ML VIAL ONE (15:32)
[2018-04-18] MEDS ORDERED: PROPOFOL 200 MG/20 ML VIAL ONE (15:32)
[2018-04-18] MEDS ORDERED: Labetalol 100 MG/20 ML MDV ONE (15:32)
[2018-04-18] MEDS ORDERED: Succinylcholine Chloride 20 MG/ML 10 ml SYRINGE FS ONE (15:32)
[2018-04-18] MEDS ORDERED: Promethazine HCl 25 MG/ML VIAL IM PRN (16:03)
[2018-04-18] MEDS ORDERED: Promethazine HCl 25 MG/ML VIAL SLOW IVP PRN (16:03)
[2018-04-18] MEDS ORDERED: Ondansetron HCl/PF 4 MG/2 ML Vial IVP PRN (16:03)
[2018-04-18] MEDS ORDERED: Meperidine HCl/PF 25 MG/ML VIAL SLOW IVP PRN (16:03)
[2018-04-18] MEDS ORDERED: Sodium Chloride 0.9% 10 ML ONE (16:43)
[2018-04-18] MEDS ORDERED: Morphine 4 MG/ML VIAL ONE (16:47)
--- NOTE | 2018-04-18 21:23 | OP ---
PREOPERATIVE DIAGNOSIS: Dysphagia. DESCRIPTION OF PROCEDURE: After informed consent was obtained, the patient was placed in the left la teral decubitus position. Anesthesia administered per the Anesthesia Department. Forward-viewing en doscope was inserted into esophagus under direct visualization with ease and passed to the anastomosi s with ease. There, a fairly tight stricture was noted. No food or other abnormality was noted. A 15-mm balloon was placed across the stricture, inflated to stage III for 1 minute, deflated and remov ed. There, the scope could then be passed into the second portion of the duodenum. Post-surgical ch anges are noted in the stomach. There were erosions in the more proximal stomach. ASSESSMENT: 1. Moderate to severe esophageal stricture at the anastomosis - status post balloon dilatation. 2. Erosive esophagitis. 3. Post-surgical changes of the stomach. RECOMMENDATIONS: 1. May consider switch from Protonix to different form of PPI possibly Zegerid powder - we will defe r this to Dr. Isidro. 2. Repeat dilatations as needed. 3. Liquid diet.
--- NOTE | 2018-04-18 22:35 | HP ---
DATE OF SERVICE: 04/18/2018 HISTORY OF PRESENT ILLNESS: The patient is a 72-year-old male who was in normal state of h ealth until today when he is eating some brisket ____ and had food lodged. Since that time, he has n ot been able to swallow any other food or water or his saliva. The patient was due to have an EGD an d dilation this coming Friday by Dr. Isidro. His last dilation was when this happened and patient un derwent an EGD and had food body impaction and dilatation by Dr. Isidro. This was performed on 2017. Duodenal biopsies were performed and were negative. He has had his esophageal biopsies in the past. PAST MEDICAL HISTORY: Includes esophageal cancer, status post resection, coronary artery disease, CO PD, hyperlipidemia. PAST SURGICAL HISTORY: Includes esophagectomy, colonoscopy, hiatal hernia surgery, knee surgery, marquez k surgery, stent placement. SOCIAL HISTORY: Smokes a pack per day. Does not drink alcohol. FAMILY HISTORY: Negative for GI or liver disease. ALLERGIES: Includes ADHESIVE TAPE, CODEINE and PENICILLIN. HOME MEDICATIONS: Includes terazosin 1 mg p.o. daily, prochlorperazine 10 mg p.o. q.4 hours p.r.n., pantoprazole 40 mg 1 p.o. b.i.d., lorazepam 1 mg p.o. t.i.d., gabapentin 100 mg p.o. t.i.d., aspirin 1 p.o. daily. FAMILY HISTORY: Negative. REVIEW OF SYSTEMS: Ten systems were reviewed and were negative except for above. PHYSICAL EXAMINATION: GENERAL: Shows a cachectic white male in no acute distress. VITAL SIGNS: Stable. He is afebrile. HEENT: Unremarkable. NECK: Supple. CHEST: Clear. CARDIOVASCULAR: Regular rate and rhythm. ABDOMEN: Soft and nontender without organomegaly or mass. He has open skin wound. LABORATORY DATA: Shows white blood cell count 1.9, hemoglobin 10.5, hematocrit 31.0, platelet count 200,000. ASSESSMENT: 1. Esophageal foreign body. 2. History of esophageal cancer status post esophagectomy. 3. Esophageal stricture. 4. Leukopenia. 5. Thrombocytopenia. 6. Chronic obstructive pulmonary disease. 7. Coronary artery disease. RECOMMENDATIONS: 1. Esophagogastroduodenoscopy with foreign body extraction. 2. Possible dilatation.
== END 2018-04-18 17:20 | disposition home or self-care (01) ==
LOC: ERS 12:44 → SDC 16:26
PROVIDERS: ATTEND Internal Medicine Gastroenterology
PROC: 0D758ZZ Dilation of Esophagus, Via Natural or Artificial Opening Endoscopic (ICD-10-PCS; principal; 2018-04-18)
DX: K22.2 Esophageal obstruction (principal); K22.10 Ulcer of esophagus without bleeding; I25.10 Atherosclerotic heart disease of native coronary artery without angina pectoris; J44.9 Chronic obstructive pulmonary disease, unspecified; E78.5 Hyperlipidemia, unspecified; F17.200 Nicotine dependence, unspecified, uncomplicated; D72.819 Decreased white blood cell count, unspecified; Z88.5 Allergy status to narcotic agent; Z88.0 Allergy status to penicillin; Z79.82 Long term (current) use of aspirin; Z79.899 Other long term (current) drug therapy; Z85.01 Personal history of malignant neoplasm of esophagus
CPT/HCPCS: 71045; 80048; 85025; 93005; 93010; 96361; 96374; 99406; A4216; J1642; J2001; J2270; J2704

== ENCOUNTER 2018-05-05 11:32 | Day surgery (SDC) | payer MEDICARE, OTHER ==
[2018-05-04 17:36] VITALS: BMI 19.4
[~2018-05-05 11:32] MED LIST changes: -Succinylcholine Chloride 20 MG/ML 10 ml SYRINGE FS ONE; -ePHEDrine/0.9% NaCl/PF SYRINGE 50 mg/10 ml ONE
[2018-05-05] MEDS ORDERED: Sodium Chloride 0.9% 10 ML ONE (16:42)
--- NOTE | 2018-05-05 22:12 | OP ---
DATE OF PROCEDURE: 05/05/2018 PROCEDURE: Esophagogastroduodenoscopy with balloon dilation of esophageal stricture. PREOPERATIVE DIAGNOSIS: Dysphagia. OPERATIVE NOTE: Informed consent was obtained from the patient. He was sedated with total intraveno us anesthesia. The endoscope was advanced to the proximal jejunum without difficulty. The esophagus had a stricture in the mid esophagus, which was too tight to pass the diagnostic endoscope through. This had circumferential ulceration and sebas in the area. The Z-line was displaced proximally. The stricture was dilated to 15 mm and then 16.5 mm with a balloon dilator. There was good effect at the dilation site and the endoscope could be passed easily through the stricture after dilation. Th e proximal stomach appeared unremarkable. There was a gastrojejunostomy with an open anastomosis obey eared healthy. Small bowel mucosa was unremarkable overall. IMPRESSION: 1. Mid esophageal stricture with ulceration and sebas and proximally displaced Z-line dilated to 1 6.5 mm with a balloon dilator. 2. He has had a prior gastrectomy with healthy appearing gastrojejunostomy anastomosis. RECOMMENDATIONS: Repeat EGD in 2 weeks. Possibly will be able to dilate the stricture further up to 18 mm, depending on clinical response to this dilation.
== END 2018-05-05 16:58 | disposition home or self-care (01) ==
LOC: SDC 11:32
PROVIDERS: ATTEND Internal Medicine Gastroenterology
PROC: 0D758ZZ Dilation of Esophagus, Via Natural or Artificial Opening Endoscopic (ICD-10-PCS; principal; 2018-05-05)
DX: K22.2 Esophageal obstruction (principal); K22.10 Ulcer of esophagus without bleeding; J44.9 Chronic obstructive pulmonary disease, unspecified; E78.00 Pure hypercholesterolemia, unspecified; I25.10 Atherosclerotic heart disease of native coronary artery without angina pectoris; F17.210 Nicotine dependence, cigarettes, uncomplicated; Z88.0 Allergy status to penicillin; Z85.01 Personal history of malignant neoplasm of esophagus; Z79.82 Long term (current) use of aspirin; Z79.899 Other long term (current) drug therapy; Z88.5 Allergy status to narcotic agent; Z91.048 Other nonmedicinal substance allergy status; Z90.3 Acquired absence of stomach [part of]
CPT/HCPCS: J1642; J2001; J2704